=== PATIENT | female | born 1980 | race Two or more races ===

== ENCOUNTER 2025-05-31 01:27 | Emergency (ER) | payer MEDICAID, SELFPAY ==
[2025-05-31 01:31] VITALS: PULSE 86; RESP 18; O2SAT 96; BMI 28.6
[2025-05-31 01:45] VITALS: BP 165/87; PULSE 90; RESP 20; TEMP 36.7; O2SAT 96
--- NOTE | 2025-05-31 02:18 | XR_ITS ---
Examination: PA lateral chest 2 views TECHNIQUE: Upright PA and lateral chest 2 views Date and time: May 31, 2025, 0230 hours INDICATIONS: Coughing one week. FINDINGS: Normal heart size. The lungs are clear. The osseous structures are intact IMPRESSION: No active disease
--- NOTE | 2025-05-31 02:18 | PD.EDURI ---
Upper Respiratory Inf. RME/HPI General Chief Complaint: Flu Like Symptoms Stated Complaint: COUGH Time Seen by Provider: 05/31/25 02:14 Arrival date/time: 05/31/25 01:27 44F with no significant PMH presents to ED with 1 week of cough, sometimes to the point of N/V. Patient denies recent travel or sick contacts. Limitations: no limitations Related Data Home Medications ?Medication ?Instructions ?Recorded ?Confirmed acetaminophen 300 mg-codeine 30 10 ml PO QID PRN Cough 08/07/19 08/07/19 mg/12.5 mL (12.5 mL) oral solution azithromycin 500 mg tablet 500 mg PO QDAY 08/07/19 08/07/19 loratadine 10 mg capsule 10 mg PO QDAY 08/07/19 08/07/19 pseudoephedrine HCl 30 mg tablet 30 mg PO Q6H PRN Dyspnea 08/07/19 08/07/19 (Sudafed) Previous Rx's ?Medication ?Instructions ?Recorded IBU 800 mg tablet (ibuprofen) 800 mg PO Q6H PRN pain #30 tabs 08/07/19 fexofenadine 60 mg-pseudoephedrine 1 tab PO Q12H PRN allergy symptoms 02/24/24 ER 120 mg tablet,ext.release,12 hr #20 tabs (Lesly-D 12 Hour) naproxen 500 mg tablet (Naprosyn) 500 mg PO BID PRN pain #20 tabs 02/24/24 Allergies Allergy/AdvReac Type Severity Reaction Status Date / Time Penicillins Allergy Severe Vomiting Verified 08/07/19 08:35 Review of Systems Review of Systems Systems Reviewed: All systems reviewed, normal except as documented Constitutional Constitutional: Reports system reviewed and no additional complaints, except as documented, Denies fever(s) and Denies headache(s) ENT Ears, Nose, Mouth, and Throat: Denies disequilibrium and Denies headache(s) Cardiovascular Cardiovascular: Reports system reviewed and no additional complaints, except as documented, Denies chest pain and Denies dyspnea Respiratory Respiratory: Reports system reviewed and no additional complaints, except as documented, Reports as per HPI, Reports cough and Denies dyspnea Gastrointestinal Gastrointestinal: Reports system reviewed and no additional complaints, except as documented, Denies abdominal pain, Denies nausea and Denies vomiting Neurologic Neurologic: Reports system reviewed and no additional complaints, except as documented, Denies confusion, Denies disequilibrium and Denies headache(s) Psychiatric Psychiatric: Denies confusion Past Medical History Social History SMOKING STATUS: Never smoker ED Exam General Limitations: Present no limitations General appearance: Present alert and in no apparent distress Head Head exam: Present atraumatic Eye Eye exam: Present normal appearance, PERRL and EOMI ENT ENT exam: Present normal exam, normal oropharynx and mucous membranes moist Neck Neck exam: Present normal inspection, full ROM and trachea midline Chest Chest inspection: Present normal inspection and symmetric chest wall rise Respiratory Respiratory exam: Present normal lung sounds bilaterally Cardiovascular Cardiovascular exam: Present regular rate, normal rhythm and normal heart sounds Abdominal Exam Abdominal exam: Present soft and normal bowel sounds Extremities Exam Extremities exam: Present normal inspection and full ROM Back Exam Back exam: Present normal inspection and full ROM Neurological Exam Neurological exam: Present alert, oriented X3 and CN II-XII intact Psychiatric Psychiatric exam: Present normal affect and normal mood Skin Skin exam: Present warm, dry, intact and normal color Course Quality Measures none Orders Category Date Time Status Bedside COVID-19 Antigen Test NOW Care 05/31/25 01:57 Active Bedside Influenza A&B Antigen Test NOW Care 05/31/25 01:57 Completed XR chest 2V Stat Exams 05/31/25 02:18 Taken Dexamethasone Inj [Decadron Inj] Med 05/31/25 02:18 Discontinued 10 mg PO X1 ONE Ondansetron Odt [Zofran Odt] Med 05/31/25 02:18 Discontinued 4 mg PO X1 ONE Vital Signs Vital signs: Vital Signs Temperature 98.1 F 05/31/25 01:45 Pulse Rate 90 05/31/25 01:45 Respiratory Rate 20 05/31/25 01:45 Blood Pressure 165/87 H 05/31/25 01:45 Pulse Oximetry (%) 96 05/31/25 01:45 Oxygen Delivery Method Room Air 05/31/25 01:45 O2 at 96% on RA and WNLs Upper Respiratory Infection MDM Narrative MDM Narrative:: 44F with no significant PMH presents to ED with 1 week of cough, sometimes to the point of N/V. Patient denies recent travel or sick contacts. Physical exam reveals clear oropharynx and lungs. Excessive cough, but normal WOB. Patient is afebrile, calm, and alert. Swabs neg. Wet CXR read bronchitis pattern pending official report. Steroids had significant improvement. Clinical Data Manager given. Patient data External records reviewed:: [facility] previous records Clinical information provided by:: patient Social determinants that could affect healthcare access:: none Patient has the following chronic illnesses:: none How is presenting disease/condition affected by chronic disease/condition?: no chronic disease Evaluation data The following diagnostics were reviewed and interpreted by me:: lab results and radiology exam(s) Lab and/or radiology exams considered but not ordered:: ordered Interpretation Summary: above Medications / Prescriptions Medications or Prescriptions considered but not ordered:: ordered Medication administrations:: Medication Administration History Discontinued Medications Dexamethasone Sodium Phosphate (Dexamethasone Sod Phos Inj 10 Mg/Ml Vial) 10 mg PO X1 ONE Stop: 05/31/25 02:19 Last Admin: 05/31/25 02:29 Dose: 10 mg Documented By: BC Ondansetron HCl (Ondansetron Odt 4 Mg Tabrap) 4 mg PO X1 ONE; Protocol Stop: 05/31/25 02:19 Last Admin: 05/31/25 02:30 Dose: 4 mg Documented By: BC above Consultations Consultation(s) initiated? (list below): No Diagnosis Upper Respiratory Differential Diagnosis: upper respiratory infection, croup, otitis media, sinusitis, viral infection, bronchitis, influenza, pharyngitis and other (CAP, respiratory infection) Most likely diagnosis given after review of the tests above:: respiratory infection Admission Indicated Admission indicated?: not indicated Admission Request Was there a request for admission?: No Disposition Plan Disposition Plan: Discharge Discharge Attestation Discharge Attestation: The patient and all family members were given an opportunity to ask questions and understood the discharge instructions. Discharge instructions specifically effects, indications for sooner follow up or return to the emergency department, and the expected course of current diagnosis. Patient condition: Stable Discharge Plan Plan Patient Disposition: HOME (Self Care) Discharge Disposition comment: Stable Prescriptions/Referrals Prescriptions/Med Rec: No Action pseudoephedrine HCl [Sudafed] 30 mg Tablet 30 mg PO Q6H PRN (Reason: Dyspnea) azithromycin 500 mg Tablet 500 mg PO QDAY loratadine 10 mg Capsule 10 mg PO QDAY acetaminophen-codeine 300 mg-30 mg /12.5 mL Solution 10 ml PO QID PRN (Reason: Cough) ibuprofen [IBU] 800 mg tablet 800 mg PO Q6H PRN (Reason: pain) Qty: 30 0RF fexofenadine-pseudoephedrine [Lesly-D 12 Hour] 60-120 mg tablet extended release 12 hr 1 tab PO Q12H PRN (Reason: allergy symptoms) Qty: 20 0RF naproxen [Naprosyn] 500 mg tablet 500 mg PO BID PRN (Reason: pain) Qty: 20 0RF Referrals: Nadeen Valles [Primary Care Provider] - In 1 week Problem List Clinical Impression: Respiratory infection Patient/Caregiver Discharge Instructions Education Materials: ED URI, Viral, No Abx (Adult) Additional Instructions: Please follow-up with PCP within 24-48 hours and return immediately if symptoms worsen. Ibuprofen/Tylenol can be used simultaneously for greater fever/pain control. Benadryl is good for cough, congestion, and sleep. Follow-up with PCP to see CXR results on patient portal. Print Language: Mongolian Stand Alone Forms: Patient Portal Info Letter PA/[employer] Supervising Physician PA/ANABEL Supervising Physician: Dr. Valles
[2025-05-31] MEDS: DEXAMETHASONE SOD PHOS INJ 10 MG/ML VIAL PO (02:29)
[2025-05-31] MEDS: ONDANSETRON ODT 4 MG TABRAP PO (02:30)
[2025-05-31 03:41] VITALS: BP 134/77; PULSE 74; RESP 17; TEMP 36.7; O2SAT 97
== END 2025-05-31 04:02 | disposition home or self-care (01) ==
PROVIDERS: Emergency Provider Emergency Medicine; PCP Nurse Practitioner Family
DX: J06.9 Acute upper respiratory infection, unspecified (principal)
CPT/HCPCS: 71046; 87400; 87811; 96372; 99283; J1100; Q0162